=== PATIENT | male | born 1990 | race Caucasian/White ===

== ENCOUNTER 2018-05-15 05:33 | Day surgery (SDC) | payer OTHER ==
[2018-05-08 10:10] LABS: HEMATOCRIT 45.5 % (37.9-51.0); MEAN CORPUSCULAR HEMOGLOBIN 31.6 pg (27.0-33.4); MEAN CORPUSCULAR HGB CONC 35.2 g/dL (32.0-36.0); MEAN CORPUSCULAR VOLUME 90 fl (80-97); PLATELET COUNT 201 10^3/uL (150-450); RED BLOOD COUNT 5.07 10^6/uL (4.35-5.55); RED CELL DISTRIBUTION WIDTH 13.3 % (11.5-14.0); WHITE BLOOD COUNT 8.1 10^3/uL (4.0-10.5)
[2018-05-08 10:32] LABS: ANION GAP 11 (5-19); BLOOD UREA NITROGEN 16 mg/dL (7-20); CALCIUM 9.5 mg/dL (8.4-10.2); CARBON DIOXIDE 28 mmol/L (22-30); CHLORIDE 102 mmol/L (98-107); GLUCOSE 93 mg/dL (75-110); POTASSIUM 4.9 mmol/L (3.6-5.0); SODIUM 140.5 mmol/L (137-145)
[~2018-05-15 05:33] MED LIST: CEFAZOLIN 2 GM/D5W RTU 2 GM/50 ML RTUPB IV ONE; CEFAZOLIN 2 GM/D5W RTU 2 GM/50 ML RTUPB IV PRN; IBUPROFEN 800 MG in NORMAL SALINE 250 ML IV PRN; LACTATED RINGERS 1000 ML IV PRN; LIDOCAINE 0.5% INJ-PF (5 MG/ML) 50 ML SDV SUBCUT PRN
[2018-05-15] MEDS ORDERED: PROMETHAZINE HCL INJ 25 MG/1 ML VIAL ONE (07:00)
[2018-05-15] MEDS ORDERED: ONDANSETRON HCL INJ/PF 4 MG/2 ML SDV ONE (07:00)
[2018-05-15] MEDS ORDERED: MIDAZOLAM 2 MG/2 ML INJ ONE (07:00)
[2018-05-15] MEDS ORDERED: DEXAMETHASONE SOD PHOSPHATE INJ 4 MG/1 ML VIAL ONE (07:00)
[2018-05-15] MEDS ORDERED: HYDROMORPHONE HCL INJ/PF 2 MG/ML AMPULE ONE (07:00)
[2018-05-15] MEDS ORDERED: FENTANYL CITRATE INJ/PF 100 MCG/2 ML AMPUL ONE (07:00)
[2018-05-15] MEDS ORDERED: LIDOCAINE 2% INJ-PF (100 MG/5 ML) SYRINGE ONE (07:00)
[2018-05-15] MEDS ORDERED: ACETAMINOPHEN 1,000 MG/100 ML RTUPB IV ONE (07:01)
[2018-05-15] MEDS ORDERED: PROPOFOL INJ 200 MG/20 ML VIAL IV ONE (07:01)
[2018-05-15] MEDS ORDERED: BUPIVACAINE HCL 0.25 % INJ/PF (2.5 MG/1 ML) 30 ML VIAL ONE (07:24)
[2018-05-15] MEDS ORDERED: MEPERIDINE HCL/PF INJ 25 MG/1 ML DISP.SYRIN IV PRN (08:07)
[2018-05-15] MEDS ORDERED: MORPHINE SULFATE 10 MG/ML INJ IV PRN (08:07)
[2018-05-15] MEDS ORDERED: PROMETHAZINE HCL INJ 25 MG/1 ML VIAL IV PRN ×2 (08:07)
[2018-05-15] MEDS ORDERED: DIPHENHYDRAMINE HCL 50 MG/ML VIAL IV PRN (08:07)
[2018-05-15] MEDS ORDERED: FENTANYL CITRATE INJ/PF 100 MCG/2 ML AMPUL IV PRN ×3 (08:07)
--- NOTE | 2018-05-15 10:27 | Discharge Summary ---
Discharge Summary (SDC) - Discharge Final Diagnosis: bilateral inguinal hernia Date of Surgery: 05/15/18 Discharge Date: 05/15/18 Condition: Stable Treatment or Instructions: d/c home. diet as tolerated. activity: no lifting >10 lbs x 4 weeks. f/u with me in 7-10 days. ok to shower on Friday. No tub baths or swimming pools x 2 weeks. Discharge Diet: As Tolerated Respiratory Treatments at Home: Deep Breathing/Coughing, Incentive Spirometer Discharge Activity: No Lifting Over 10 Pounds Home Care Assistance: None Needed Report the Following to Your Physician Immediately: Shortness of Breath, Nausea, Vomiting, Increase in Pain, Fever over 101 Degrees, Unusual Bleeding, Redness, Swelling, Warmth
[2018-05-15] MEDS ORDERED: HYDROCODONE/ACETAMINOPHEN 10-325 MG TABLET ONE (10:47)
[2018-05-15] MEDS ORDERED: NEOSTIGMINE METHYLSULFATE 10 MG/10 ML VIAL ONE (10:49)
[2018-05-15] MEDS ORDERED: KETOROLAC TROMETHAMINE 60 MG/2 ML SDV ONE (10:49)
[2018-05-15] MEDS ORDERED: SUCCINYLCHOLINE CHLORIDE INJ 200 MG/10 ML VIAL ONE (10:49)
[2018-05-15] MEDS ORDERED: ROCURONIUM BROMIDE INJ 50 MG/5 ML VIAL IV ONE (10:49)
[2018-05-15] MEDS ORDERED: GLYCOPYRROLATE 1 MG/5 ML SYRINGE ONE (10:49)
[2018-05-15 14:22] VITALS: BP 101/77
--- NOTE | 2018-05-18 16:14 | Operative Report ---
Nonrecallable Operative Report DATE OF SURGERY: 05/15/18 PREOPERATIVE DIAGNOSIS: bilateral inguinal hernia POSTOPERATIVE DIAGNOSIS: same OPERATION: robot assisted laparoscopic bilateral inguinal hernia reapir with mesh SURGEON: SKYLAR SLOAN 1ST INFORMATION TECHNOLOGY AUDITOR: MIRIAM JUAREZ ANESTHESIA: GA TISSUE REMOVED OR ALTERED: none COMPLICATIONS: john apparent ESTIMATED BLOOD LOSS: minimal PROCEDURE: implants: right and left large 3-D max inguinal hernia mesh Procedure in-detail: After informed consent was obtained, the patient was brought to the operating room and laid in the supine position. The area of the abdomen was prepped and draped in a normal sterile fashion. A supraumbilical incision was created with a 15 blade scalpel. Dissection was carried through the subcutaneous tissue using blunt dissection. The linea alba fascia was incised sharply, the abdomen was entered sharply. The balloon trocar was inserted, and pneumoperitoneum was achieved. 2 8 mm robotic trochars were then placed in the right and left lateral abdominal wall under direct laparoscopic visualization. Next, the robot was brought over the patient and docked appropriately. Robotic instruments were inserted into the trochars. I then assumed my position at the surgeon's console. Attention was turned to the right groin. The inguinal hernia defect was easily identified. The peritoneum was scored superior to the inguinal hernia defect. A preperitoneal dissection was then undertaken. The peritoneum was freed from the cord structures. This was done with great care, so as not to injure the cord structures. Once the hernia sac was freed, it was everted into the abdominal cavity. Next, a 3 DMax right-sided inguinal hernia mesh was placed into the preperitoneal space. It was sutured medially and superiorly using 2-0 Vicryl suture. Once this was completed, a 2-0 V lock suture was used to close the peritoneum in simple running fashion. Attention was then turned to the left groin. The left-sided hernia defect was also easily identified. The peritoneum was scored 2-3 cm superior to the defect. A preperitoneal dissection was then undertaken. This was done using sharp dissection, blunt dissection, and electrocautery. The hernia sac was freed from the defect. The peritoneum was freed from the cord structures with great care, so as not to injure the cord structures. Once this was completed a large left-sided 3 DMax inguinal hernia mesh was placed into the preperitoneal space. It was sutured medially and superiorly using 2-0 Vicryl suture. The peritoneum was then closed using 2-0 V lock suture in simple running fashion. The repairs were then inspected, and found to be in good order. Once this was confirmed, the robot was undocked and I scrubbed back into the case. The trochars were removed, and pneumoperitoneum was relieved. The supraumbilical fascia was closed using 0 Vicryl suture in [id number] fashion. The overlying skin was closed using 4-0 Vicryl Rapide suture in subcuticular fashion. Dressings were placed, and the procedure was concluded. All sponge, instrument, and needle counts were correct x2. Condition: Stable. Miriam Juarez PA-C was scrubbed and present the entirety of the procedure. She assisted with all portions of the procedure including placement of the trochars, docking of the robot, exchanging of the robotic instruments, closure of the fascia, and closure of the skin.
== END 2018-05-15 12:00 | disposition home or self-care (01) ==
LOC: OROUT 05:33
PROVIDERS: ATTEND Surgery
DX: K40.20 Bilateral inguinal hernia, without obstruction or gangrene, not specified as recurrent (principal); Z87.891 Personal history of nicotine dependence
CPT/HCPCS: 49650; S2900; 36415; 80048; 840; 85027; 86850; 86900; 86901; C1781; J0131; J0330; J0690; J1100; J1170; J1741; J1885; J2001; J2250; J2405; J2550; J2704; J3010; J3490; J7050